=== PATIENT | male | born 1965 | race Caucasian/White ===

== ENCOUNTER 2016-09-15 17:11 | Emergency (ER) | payer SELFPAY ==
[~2016-09-15] VITALS: Ht 180.3 cm; Wt 143.0 kg
[~2016-09-15 17:11] MED LIST: AMOXICILLIN500 MG PO; ANUCORT-HC25 MG RE; ASPIRIN81 MG PO; ATORVASTATI80 MG/TAB PO; AUGMENTIN875TAB PO; BENADRYL 50MG C50 MG PO; BENZONATATE200 MG PO; CELEXA10 MG; CIPRO500 MG OR; CIPROFLOXACN500 MG PO; DARVOCET N-100100 - OR; LISINOPRIL10 MG PO; LORTAB 10-325 M1 TAB PO; LORTAB 5/3255 MG PO; LORTAB 7.5 OR; LORTAB5 OR; MEDDOSEPAK PO; NO; NO MEDS; PHENERGAN25 MG/ML IM; PREVACID30 M1 OR; PROAIR HFA IN; REGLAN10 MG OR; ULTRAM50 M1 PO
[2016-09-15 18:40] LABS: HEMOGLOBIN 15.6 g/dl (14.0-18.0); IMMATURE GRANULOCYTES 0.6 % (0.0-1.0); MEAN CELL VOLUME 90.7 fL CALC (80.0-100.0); MEAN CORPUSCULAR HGB 29.5 pG CALC (26.0-32.0); MEAN CORPUSCULAR HGB CONC 32.5 g/L CALC (32.0-36.0); NEUT# 13.94 thou/uL (1.82-7.42); RED BLOOD COUNT 5.29 mill/uL (4.70-6.10); RED CELL DISTRI WIDTH 13.1 % (11.5-15.5)
[2016-09-15 18:45] LABS: ALBUMIN 4.6 g/dL (3.2-5.0); ALKALINE PHOSPHATASE 100 u/l (38-126); ANION GAP 15 (6-22 (CALC)); BILIRUBIN, TOTAL 0.7 mg/dL (0.0-1.4); BUN 11 mg/dL (9-20); BUN/CREATININE RATIO 14 (12-20 (CALC)); CALCIUM 9.5 mg/dL (8.4-10.2); CARBON DIOXIDE 27 mmol/l (22-30); CHLORIDE 105 mmol/l (95-108); CREATININE 0.8 mg/dL (0.7-1.3); GFR > 60 ML/MIN (>=60 (CALC)); GFR FOR AFR.AMER. > 60 ML/MIN (>=60 (CALC)); GLUCOSE 96 mg/dL (75-110); POTASSIUM 4.1 mmol/l (3.5-5.1); SGOT/AST 46 u/l (17-59); SGPT/ALT 36 u/l (21-72); SODIUM 143 mmol/l (137-146); TOTAL PROTEIN 8.4 g/dL (6.3-8.2)
[2016-09-15 19:00] VITALS: BP 121/60
[2016-09-15] MEDS ORDERED: PEPCID20 MG PO (19:28)
[2016-09-15] MEDS ORDERED: BENADRYL 50MG C50 MG PO (19:28)
[2016-09-15] MEDS ORDERED: MEDDOSEPAK PO (19:28)
== END 2016-09-15 19:25 | disposition left against medical advice (07) | DRG 916 ==
LOC: ED 17:11
PROVIDERS: Emergency Medicine
DX: T78.3XXA Angioneurotic edema, initial encounter (principal); Z91.19 Patient's noncompliance with other medical treatment and regimen

== ENCOUNTER 2017-10-09 06:41 | Emergency (ER) | payer BC ==
[~2017-10-09] VITALS: Ht 180.3 cm; Wt 130.0 kg
[~2017-10-09 06:41] MED LIST changes: +PEPCID20 MG PO
[2017-10-09 07:10] LABS: HEMATOCRIT 45.3 % (39.0-50.0); HEMOGLOBIN 14.8 g/dl (14.0-18.0); IMMATURE GRANULOCYTES 0.6 % (0.0-1.0); MEAN CELL VOLUME 90.6 fL CALC (80.0-100.0); MEAN CORPUSCULAR HGB 29.6 pG CALC (26.0-32.0); MEAN CORPUSCULAR HGB CONC 32.7 g/L CALC (32.0-36.0); NEUT# 6.37 thou/uL (1.82-7.42); RED CELL DISTRI WIDTH 13.6 % (11.5-15.5)
[2017-10-09 07:22] LABS: ALKALINE PHOSPHATASE 98 u/l (38-126); ANION GAP 14 (6-22 (CALC)); BILIRUBIN, TOTAL 0.5 mg/dL (0.0-1.4); BUN 14 mg/dL (9-20); BUN/CREATININE RATIO 18 (12-20 (CALC)); CARBON DIOXIDE 26 mmol/l (22-30); CHLORIDE 108 mmol/l (95-108); CREATININE 0.8 mg/dL (0.7-1.3); GFR > 60 ML/MIN (>=60 (CALC)); GFR FOR AFR.AMER. > 60 ML/MIN (>=60 (CALC)); POTASSIUM 4.1 mmol/l (3.5-5.1); SGOT/AST 17 u/l (17-59); SGPT/ALT 35 u/l (21-72); SODIUM 144 mmol/l (137-146); TOTAL PROTEIN 7.4 g/dL (6.3-8.2)
[2017-10-09] MEDS ORDERED: PREDNISONE50 MG PO (08:56)
[2017-10-09] MEDS ORDERED: EPIPEN 2-P0.3 MG/0.3 IM (08:56)
[2017-10-09 10:25] VITALS: BP 161/79
== END 2017-10-09 10:25 | disposition left against medical advice (07) | DRG 916 ==
LOC: ED 06:41
PROVIDERS: Emergency Medicine
DX: T78.3XXA Angioneurotic edema, initial encounter (principal); I10 Essential (primary) hypertension; F17.210 Nicotine dependence, cigarettes, uncomplicated; Z91.19 Patient's noncompliance with other medical treatment and regimen

== ENCOUNTER 2018-02-03 17:57 | Emergency (ER) | payer BC ==
[~2018-02-03] VITALS: Ht 180.3 cm; Wt 130.0 kg
[~2018-02-03 17:57] MED LIST changes: +ASPIRIN325 MG PO; +EPIPEN 2-P0.3 MG/0.3 IM; +PREDNISONE50 MG PO
[2018-02-03] MEDS ORDERED: SINGULAIR10 MG PO (18:15)
[2018-02-03 18:42] LABS: HEMATOCRIT 44.3 % (39.0-50.0); HEMOGLOBIN 14.6 g/dl (14.0-18.0); IMMATURE GRANULOCYTES 0.5 % (0.0-5.0); MEAN CELL VOLUME 91.2 fL CALC (80.0-100.0); NEUT# 8.79 thou/uL (1.82-7.42); RED BLOOD COUNT 4.86 mill/uL (4.70-6.10)
[2018-02-03 19:14] LABS: ANION GAP 12 (6-22 (CALC)); BUN 16 mg/dL (9-20); BUN/CREATININE RATIO 19 (12-20 (CALC)); CARBON DIOXIDE 25 mmol/l (22-30); CHLORIDE 108 mmol/l (95-108); CREATININE 0.9 mg/dL (0.7-1.3); GFR > 60 ML/MIN (>=60 (CALC)); GFR FOR AFR.AMER. > 60 ML/MIN (>=60 (CALC)); POTASSIUM 4.1 mmol/l (3.5-5.1); SODIUM 141 mmol/l (137-146)
[2018-02-03] MEDS ORDERED: PREDNISONE50 MG PO (19:43)
[2018-02-03] MEDS ORDERED: EPIPEN 2-P0.3 MG/0.3 IM (19:45)
[2018-02-03 21:06] VITALS: BP 160/87
== END 2018-02-03 21:08 | disposition left against medical advice (07) | DRG 916 ==
LOC: ED 17:57 → ED-I 18:20 → ED 21:08
PROVIDERS: Family Medicine
DX: T78.3XXA Angioneurotic edema, initial encounter (principal); Z91.19 Patient's noncompliance with other medical treatment and regimen; F17.200 Nicotine dependence, unspecified, uncomplicated

== ENCOUNTER 2018-04-21 20:13 | Emergency (ER) | payer SELFPAY ==
[~2018-04-21] VITALS: Ht 180.3 cm; Wt 142.6 kg
[~2018-04-21 20:13] MED LIST changes: +SINGULAIR10 MG PO
[2018-04-21 20:59] LABS: HEMATOCRIT 45.2 % (39.0-50.0); IMMATURE GRANULOCYTES 0.4 % (0.0-5.0); MEAN CELL VOLUME 89.9 fL CALC (80.0-100.0); MEAN CORPUSCULAR HGB 29.8 pG CALC (26.0-32.0); MEAN CORPUSCULAR HGB CONC 33.2 g/L CALC (32.0-36.0); NEUT# 8.08 thou/uL (1.82-7.42); RED BLOOD COUNT 5.03 mill/uL (4.70-6.10); RED CELL DISTRI WIDTH 13.2 % (11.5-15.5); URINE BILIRUBIN - DIPSTICK NEGATIVE (NEGATIVE); URINE BLOOD DIPSTICK SMALL (NEGATIVE); URINE COLOR YELLOW; URINE GLUCOSE - DIPSTICK NEGATIVE (NEGATIVE); URINE KETONE NEGATIVE (NEGATIVE); URINE LEUK ESTERASE NEGATIVE (NEGATIVE); URINE NITRITE - DIPSTICK NEGATIVE (Negative); URINE PH 5.5 (4.5-8.0); URINE PROTEIN - DIPSTICK NEGATIVE (NEG-TRACE); URINE UROBILINOGEN - DIPSTICK 0.2 E.U./dL (0.2)
[2018-04-21 21:08] LABS: URINE SQUAMOUS EPITHELIAL CELL FEW EPI/hpf (0-FEW)
[2018-04-21 21:13] LABS: ALBUMIN 4.3 g/dL (3.2-5.0); ALKALINE PHOSPHATASE 96 u/l (38-126); ANION GAP 15 (6-22 (CALC)); BILIRUBIN, TOTAL 0.6 mg/dL (0.0-1.4); BUN 9 mg/dL (9-20); BUN/CREATININE RATIO 10 (12-20 (CALC)); CARBON DIOXIDE 25 mmol/l (22-30); CHLORIDE 105 mmol/l (95-108); CREATININE 0.9 mg/dL (0.7-1.3); GFR > 60 ML/MIN (>=60 (CALC)); GFR FOR AFR.AMER. > 60 ML/MIN (>=60 (CALC)); POTASSIUM 4.4 mmol/l (3.5-5.1); SGOT/AST 23 u/l (17-59); SODIUM 141 mmol/l (137-146); TOTAL PROTEIN 7.7 g/dL (6.3-8.2)
[2018-04-21] MEDS ORDERED: BACTRIM DS1 TAB PO (23:15)
[2018-04-21] MEDS ORDERED: TRAMADOL HCL50 MG PO (23:15)
[2018-04-21] MEDS ORDERED: TAMSULOSIN0.4 MG PO (23:15)
[2018-04-22 00:06] VITALS: BP 134/60
== END 2018-04-22 00:06 | disposition home or self-care (01) | DRG 696 ==
LOC: ED 20:13
PROVIDERS: Family Medicine
DX: R31.9 Hematuria, unspecified (principal); D72.829 Elevated white blood cell count, unspecified; I10 Essential (primary) hypertension; F17.200 Nicotine dependence, unspecified, uncomplicated

== ENCOUNTER 2018-05-16 10:14 | Emergency (ER) | payer SELFPAY ==
[~2018-05-16] VITALS: Ht 180.3 cm; Wt 1212.0 kg
[~2018-05-16 10:14] MED LIST changes: +BACTRIM DS1 TAB PO; +TAMSULOSIN0.4 MG PO; +TRAMADOL HCL50 MG PO
[2018-05-16 13:11] VITALS: BP 173/88
== END 2018-05-16 13:31 | disposition home or self-care (01) | DRG 916 ==
LOC: ED 10:14
DX: T78.3XXA Angioneurotic edema, initial encounter (principal); I10 Essential (primary) hypertension; F17.200 Nicotine dependence, unspecified, uncomplicated; Z86.73 Personal history of transient ischemic attack (TIA), and cerebral infarction without residual deficits

== ENCOUNTER 2018-07-21 23:46 | Observation (INO) | payer BC ==
[~2018-07-21] VITALS: Ht 180.3 cm; Wt 135.0 kg
[2018-07-22 01:16] LABS: HEMATOCRIT 44.1 % (39.0-50.0); HEMOGLOBIN 14.4 g/dl (14.0-18.0); IMMATURE GRANULOCYTES 0.4 % (0.0-5.0); MEAN CELL VOLUME 90.2 fL CALC (80.0-100.0); MEAN CORPUSCULAR HGB 29.4 pG CALC (26.0-32.0); MEAN CORPUSCULAR HGB CONC 32.7 g/L CALC (32.0-36.0); NEUT# 9.11 thou/uL (1.82-7.42); RED BLOOD COUNT 4.89 mill/uL (4.70-6.10); RED CELL DISTRI WIDTH 13.3 % (11.5-15.5)
[2018-07-22 01:31] LABS: ALBUMIN 3.7 g/dL (3.2-5.0); ALKALINE PHOSPHATASE 99 u/l (38-126); AMYLASE 61 u/l (30-110); ANION GAP 11 (6-22 (CALC)); BILIRUBIN, TOTAL 0.2 mg/dL (0.0-1.4); BUN 13 mg/dL (9-20); BUN/CREATININE RATIO 15 (12-20 (CALC)); CARBON DIOXIDE 27 mmol/l (22-30); CHLORIDE 106 mmol/l (95-108); CREATININE 0.9 mg/dL (0.7-1.3); GFR > 60 ML/MIN (>=60 (CALC)); GFR FOR AFR.AMER. > 60 ML/MIN (>=60 (CALC)); LIPASE 60 u/l (23-300); POTASSIUM 3.9 mmol/l (3.5-5.1); SGOT/AST 13 u/l (17-59); SODIUM 141 mmol/l (137-146); TOTAL PROTEIN 6.6 g/dL (6.3-8.2)
[2018-07-22 01:43] LABS: MYOGLOBIN 22 ng/mL (0 - 121)
[2018-07-22 02:57] LABS: URINE BILIRUBIN - DIPSTICK NEGATIVE (NEGATIVE); URINE BLOOD DIPSTICK SMALL (NEGATIVE); URINE COLOR YELLOW; URINE GLUCOSE - DIPSTICK NEGATIVE (NEGATIVE); URINE KETONE NEGATIVE (NEGATIVE); URINE LEUK ESTERASE NEGATIVE (NEGATIVE); URINE NITRITE - DIPSTICK NEGATIVE (Negative); URINE PROTEIN - DIPSTICK NEGATIVE (NEG-TRACE); URINE SPECIFIC GRAVITY >=1.030; URINE UROBILINOGEN - DIPSTICK 0.2 E.U./dL (0.2)
[2018-07-22 03:09] LABS: URINE BACTERIA RARE hpf; URINE RBC 0-2 RBC/hpf (0-5); URINE WBC 0-2 WBC/hpf (0-5)
[2018-07-22 05:17] VITALS: BP 105/49
[2018-07-22 07:45] VITALS: BP 132/70
[2018-07-22 11:00] VITALS: BP 137/66
[2018-07-22] MEDS ORDERED: PROTONIX40 M2 PO (15:50)
== END 2018-07-22 16:17 | disposition home or self-care (01) | DRG 313 ==
LOC: ED 23:46 → ED-I 23:59 → ED 23:59 → ED-I 07-22 02:29 → ED 07-22 03:02 → MS2 07-22 03:03
PROVIDERS: Emergency Medicine; ADMIT Internal Medicine; ATTEND Internal Medicine
DX: R07.89 Other chest pain (principal); K21.9 Gastro-esophageal reflux disease without esophagitis; I10 Essential (primary) hypertension; F17.200 Nicotine dependence, unspecified, uncomplicated; M19.90 Unspecified osteoarthritis, unspecified site; E66.9 Obesity, unspecified; Z68.41 Body mass index [BMI] 40.0-44.9, adult; Z86.73 Personal history of transient ischemic attack (TIA), and cerebral infarction without residual deficits; Z72.89 Other problems related to lifestyle
CPT/HCPCS: G0378

== ENCOUNTER 2018-09-08 05:23 | Emergency (ER) | payer SELFPAY ==
[~2018-09-08] VITALS: Ht 180.3 cm; Wt 128.2 kg
[~2018-09-08 05:23] MED LIST changes: +PROTONIX40 M2 PO
[2018-09-08 06:02] LABS: HEMATOCRIT 49.7 % (39.0-50.0); IMMATURE GRANULOCYTES 0.8 % (0.0-5.0); MEAN CELL VOLUME 91.2 fL CALC (80.0-100.0); MEAN CORPUSCULAR HGB 29.4 pG CALC (26.0-32.0); MEAN CORPUSCULAR HGB CONC 32.2 g/L CALC (32.0-36.0); NEUT# 6.1 thou/uL (1.82-7.42); RED BLOOD COUNT 5.45 mill/uL (4.70-6.10); RED CELL DISTRI WIDTH 13.4 % (11.5-15.5)
[2018-09-08] MEDS ORDERED: ZYRTEC10 MG PO (06:53)
[2018-09-08] MEDS ORDERED: SINGULAIR10 MG PO (06:53)
[2018-09-08 06:55] LABS: ALBUMIN 4.3 g/dL (3.2-5.0); ALKALINE PHOSPHATASE 119 u/l (38-126); ANION GAP 14 (6-22 (CALC)); BUN 13 mg/dL (9-20); BUN/CREATININE RATIO 16 (12-20 (CALC)); CARBON DIOXIDE 23 mmol/l (22-30); CHLORIDE 109 mmol/l (95-108); CREATININE 0.8 mg/dL (0.7-1.3); GFR > 60 ML/MIN (>=60 (CALC)); GFR FOR AFR.AMER. > 60 ML/MIN (>=60 (CALC)); POTASSIUM 4.4 mmol/l (3.5-5.1); SGOT/AST 22 u/l (17-59); SODIUM 141 mmol/l (137-146); TOTAL PROTEIN 7.7 g/dL (6.3-8.2)
[2018-09-08 06:56] LABS: BILIRUBIN, TOTAL 0.6 mg/dL (0.0-1.4)
[2018-09-08 08:45] VITALS: BP 135/65
== END 2018-09-08 08:45 | disposition home or self-care (01) | DRG 916 ==
LOC: ED 05:23
PROVIDERS: Family Medicine
DX: T78.3XXA Angioneurotic edema, initial encounter (principal)

== ENCOUNTER 2019-03-09 05:53 | Emergency (ER) | payer SELFPAY ==
[~2019-03-09] VITALS: Ht 180.3 cm; Wt 122.7 kg
[~2019-03-09 05:53] MED LIST changes: +ZYRTEC10 MG PO
[2019-03-09] MEDS ORDERED: MELOXICAM7.5 MG PO (06:06)
[2019-03-09] MEDS ORDERED: STERAPRED DS10 MG PO (07:07)
[2019-03-09] MEDS ORDERED: PEPCID40 MG PO (07:07)
[2019-03-09 07:29] VITALS: BP 141/78
== END 2019-03-09 07:29 | disposition home or self-care (01) | DRG 916 ==
LOC: ED 05:53
DX: T78.3XXA Angioneurotic edema, initial encounter (principal); I10 Essential (primary) hypertension; F17.210 Nicotine dependence, cigarettes, uncomplicated

== ENCOUNTER 2020-08-08 21:33 | Emergency (ER) | payer SELFPAY ==
[~2020-08-08 21:33] MED LIST changes: +MELOXICAM7.5 MG PO; +PEPCID40 MG PO; +STERAPRED DS10 MG PO
[2020-08-08 22:06] LABS: HEMATOCRIT 46.4 % (39.0-50.0); HEMOGLOBIN 15.1 g/dl (14.0-18.0); IMMATURE GRANULOCYTES 0.4 % (0.0-5.0); MEAN CELL VOLUME 89.9 fL CALC (80.0-100.0); MEAN CORPUSCULAR HGB 29.3 pG CALC (26.0-32.0); MEAN CORPUSCULAR HGB CONC 32.5 g/dL CAL (32.0-36.0); NEUT# 7.88 thou/uL (1.82-7.42); RED BLOOD COUNT 5.16 mill/uL (4.70-6.10); RED CELL DISTRI WIDTH 13.2 % (11.5-15.5)
[2020-08-08 22:20] LABS: ALBUMIN 4.3 g/dL (3.2-5.0); ALKALINE PHOSPHATASE 88 u/l (38-126); AMYLASE 77 u/l (30-110); ANION GAP 11 (6-22 (CALC)); BILIRUBIN, TOTAL 0.5 mg/dL (0.0-1.4); BUN 15 mg/dL (9-20); BUN/CREATININE RATIO 17 (12-20 (CALC)); CARBON DIOXIDE 27 mmol/l (22-30); CHLORIDE 105 mmol/l (95-108); CREATININE 0.9 mg/dL (0.7-1.3); GFR > 60 ML/MIN (>=60 (CALC)); GFR FOR AFR.AMER. > 60 ML/MIN (>=60 (CALC)); LIPASE 38 u/l (23-300); POTASSIUM 3.8 mmol/l (3.5-5.1); SGOT/AST 20 u/l (17-59); SODIUM 140 mmol/l (137-146); TOTAL PROTEIN 8.1 g/dL (6.3-8.2)
[2020-08-08 22:29] LABS: MYOGLOBIN 32 ng/mL (0 - 121)
[2020-08-08 22:37] LABS: ACT PARTIAL THROMBO TIME 24.5 SECONDS (20.0-32.5); PROTHROMBIN TIME 10.2 SECONDS (9.0-12.5)
[2020-08-08 22:43] LABS: D-DIMER 0.76 mg/L (0.19-0.60)
[2020-08-09] MEDS ORDERED: PROTONIX40 M2 PO (00:13)
[2020-08-09 00:17] VITALS: BP 136/75
== END 2020-08-09 00:25 | disposition home or self-care (01) | DRG 392 ==
LOC: ED 21:33
PROVIDERS: Family Medicine
DX: K21.9 Gastro-esophageal reflux disease without esophagitis (principal); K29.70 Gastritis, unspecified, without bleeding; I10 Essential (primary) hypertension; F17.210 Nicotine dependence, cigarettes, uncomplicated; Z86.73 Personal history of transient ischemic attack (TIA), and cerebral infarction without residual deficits; Z20.822 Contact with and (suspected) exposure to COVID-19
CPT/HCPCS: Q9967

== ENCOUNTER 2020-10-16 22:20 | Emergency (ER) | payer SELFPAY ==
[~2020-10-16] VITALS: Ht 180.3 cm; Wt 132.0 kg
[2020-10-17] MEDS ORDERED: VOLTAREN75 MG PO (00:08)
[2020-10-17 00:15] VITALS: BP 164/90
== END 2020-10-17 00:20 | disposition home or self-care (01) | DRG 563 ==
LOC: ED 22:20
DX: S29.012A Strain of muscle and tendon of back wall of thorax, initial encounter (principal); I10 Essential (primary) hypertension; F17.200 Nicotine dependence, unspecified, uncomplicated; X58.XXXA Exposure to other specified factors, initial encounter; Z86.73 Personal history of transient ischemic attack (TIA), and cerebral infarction without residual deficits

== ENCOUNTER 2020-11-28 22:14 | Emergency (ER) | payer SELFPAY ==
[~2020-11-28 22:14] MED LIST changes: +VOLTAREN75 MG PO
[2020-11-29] MEDS ORDERED: STERAPRED DS10 MG PO (04:20)
== END 2020-11-29 01:21 | disposition left against medical advice (07) | DRG 951 ==
LOC: ED 22:14 → LWOBS 11-29 00:58
DX: Z53.21 Procedure and treatment not carried out due to patient leaving prior to being seen by health care provider (principal)

== ENCOUNTER 2020-11-29 02:50 | Emergency (ER) | payer SELFPAY ==
[~2020-11-29] VITALS: Ht 180.3 cm; Wt 120.0 kg
[2020-11-29] MEDS ORDERED: STERAPRED DS10 MG PO (04:20)
[2020-11-29 04:28] VITALS: BP 155/73
== END 2020-11-29 04:40 | disposition home or self-care (01) | DRG 916 ==
LOC: ED 02:50
DX: T78.3XXA Angioneurotic edema, initial encounter (principal); I10 Essential (primary) hypertension; F17.200 Nicotine dependence, unspecified, uncomplicated; Z86.73 Personal history of transient ischemic attack (TIA), and cerebral infarction without residual deficits

== ENCOUNTER 2022-11-13 14:26 | Emergency (ER) | payer SELFPAY ==
[2022-11-13] VITALS (15 sets, daily range): BP systolic 109–129; BP diastolic 47–72
[~2022-11-13] VITALS: Ht 180.3 cm; Wt 145.6 kg
[2022-11-13] MEDS ORDERED: COZAAR25 MG PO (15:21)
[2022-11-13] MEDS ORDERED: PAROXETINE10 MG PO (15:22)
[2022-11-13] MEDS ORDERED: ATORVASTATIN CA20 MG PO (15:22)
[2022-11-13 15:43] LABS: BASO% 0.4 % (0-3); IMMATURE GRANULOCYTES 1.2 % (0.0-5.0); LYMPH% 32.8 % (15-41); MEAN CELL VOLUME 93.5 fL CALC (80.0-100.0); MEAN CORPUSCULAR HGB 30.3 pG CALC (26.0-32.0); MEAN CORPUSCULAR HGB CONC 32.4 g/dL CAL (32.0-36.0); MONO% 11.1 % (2-13); NEUT# 5.81 thou/uL (1.82-7.42); NEUT% 51.5 % (42-76); RED BLOOD COUNT 3.1 mill/uL (4.70-6.10); RED CELL DISTRI WIDTH 13.6 % (11.5-15.5)
[2022-11-13 15:45] LABS: HEMOGLOBIN 9.4 g/dl (14.0-18.0)
[2022-11-13 15:56] LABS: ALBUMIN 3.9 g/dL (3.2-5.0); ALKALINE PHOSPHATASE 82 u/l (38-126); ANION GAP 11 (6-22 (CALC)); BILIRUBIN, TOTAL 0.4 mg/dL (0.2-1.3); BUN 16 mg/dL (9-20); BUN/CREATININE RATIO 17 (12-20 (CALC)); CARBON DIOXIDE 27 mmol/l (22-30); CHLORIDE 106 mmol/l (95-108); CREATININE 0.9 mg/dL (0.7-1.3); GFR FOR AFR.AMER. > 60 ML/MIN (>=60 (CALC)); GFR OTHER RACES > 60 ML/MIN (>=60 (CALC)); POTASSIUM 3.7 mmol/l (3.5-5.1); SGOT/AST 30 u/l (17-59); SODIUM 140 mmol/l (137-146); TOTAL PROTEIN 6.9 g/dL (6.3-8.2)
[2022-11-13 16:06] LABS: PROTHROMBIN TIME 9.5 SECONDS (9.0-12.5)
[2022-11-13] MEDS ORDERED: PROTONIX40 M2 PO (17:53)
[2022-11-13] MEDS ORDERED: FERROUS SULF324 M1 PO (17:55)
== END 2022-11-13 18:14 | disposition home or self-care (01) | DRG 379 ==
LOC: ED 14:26
PROVIDERS: Nurse Practitioner
DX: K92.2 Gastrointestinal hemorrhage, unspecified (principal); K21.9 Gastro-esophageal reflux disease without esophagitis; R94.31 Abnormal electrocardiogram [ECG] [EKG]
CPT/HCPCS: Q9967; S0164

== ENCOUNTER 2023-04-14 15:22 | Emergency (ER) | payer SELFPAY ==
[~2023-04-14 15:22] MED LIST changes: +ALL DAY10 MG PO; +ATORVASTATIN CA20 MG PO; +COZAAR25 MG PO; +FERROUS SULF324 M1 PO; +PAROXETINE10 MG PO
== END 2023-04-14 17:38 | disposition left against medical advice (07) | DRG 951 ==
LOC: ED 15:22 → LWOBS 16:38 → ED 16:38 → LWOBS 17:38
DX: Z53.21 Procedure and treatment not carried out due to patient leaving prior to being seen by health care provider (principal)

== ENCOUNTER 2024-06-08 21:45 | Observation (INO) | payer OTHER ==
[~2024-06-08] VITALS: Ht 180.3 cm; Wt 137.6 kg
[~2024-06-08 21:45] MED LIST changes: +NAPROXEN500 MG PO; +PERCOCET 10/31 COMBO PO; +ZOLOFT25 MG PO
[2024-06-08 21:55] VITALS: BP 148/87
[2024-06-08] MEDS ORDERED: EPINEPHrine HCL 1 MG/ML AMP ONE (21:56)
[2024-06-08] MEDS ORDERED: EPINEPHrine HCL 1 MG/ML AMP IM ONE ×2 (22:00→22:45)
[2024-06-08] MEDS ORDERED: DiphenhydrAMINE HCL 50 MG/ML SDV IV ONE ×2 (22:00→23:55)
[2024-06-08 22:31] VITALS: BP 160/89
[2024-06-08 23:01] VITALS: BP 162/92
[2024-06-08 23:16] VITALS: BP 128/91
[2024-06-08 23:46] VITALS: BP 134/74
[2024-06-08 23:49] LABS: BASO% 0.2 % (0-3); EOS% 0.8 % (0-8); HEMATOCRIT 34.5 % (39.0-50.0); IMMATURE GRANULOCYTES 0.4 % (0.0-5.0); LYMPH% 14.8 % (15-41); MEAN CELL VOLUME 91.5 fL CALC (80.0-100.0); MEAN CORPUSCULAR HGB 29.2 pG CALC (26.0-32.0); MEAN CORPUSCULAR HGB CONC 31.9 g/dL CAL (32.0-36.0); NEUT# 23.1 thou/uL (1.82-7.42); NEUT% 79.8 % (42-76); RED BLOOD COUNT 3.77 mill/uL (4.70-6.10); RED CELL DISTRI WIDTH 13.5 % (11.5-15.5)
[2024-06-08] MEDS ORDERED: PROTONIX40 M2 PO (23:50)
[2024-06-08] MEDS ORDERED: EPINEPHrine HCL 1 MG/ML AMP IV ONE (23:55)
[2024-06-09] VITALS (23 sets, daily range): BP systolic 90–147; BP diastolic 64–92
[2024-06-09 00:11] LABS: ALBUMIN 3.8 g/dL (3.2-5.0); BILIRUBIN, TOTAL 0.4 mg/dL (0.2-1.3); CREATININE 0.9 mg/dL (0.7-1.3); POTASSIUM 3.5 mmol/l (3.5-5.1)
[2024-06-09] MEDS ORDERED: EPINEPHrine HCL 1 MG/ML AMP IN ONE (00:25)
[2024-06-09] MEDS ORDERED: EPINEPHrine HCL 1 MG/ML AMP IM ONE (00:35)
[2024-06-09] MEDS ORDERED: AMPICILLIN & SULBACTAM SODIUM 1.5 GM in SODIUM CHLORIDE 0.9% 50 ML IV ONE (01:20)
[2024-06-09] MEDS ORDERED: SODIUM CHLORIDE 0.9% 1,000 ML IV ONE ×2 (01:30→02:25)
[2024-06-09] MEDS ORDERED: SODIUM CHLORIDE 0.9% 1,000 ML IV PRN (02:40)
[2024-06-09] MEDS ORDERED: MAGNESIUM HYDROXIDE 30 ML UDC PO PRN (02:40)
[2024-06-09] MEDS ORDERED: ACETAMINOPHEN 325 MG/TAB PO PRN (02:40)
[2024-06-09] MEDS ORDERED: AMPICILLIN & SULBACTAM SODIUM 3 GM in SODIUM CHLORIDE 0.9% 100 ML IV SCH (06:00)
[2024-06-09] MEDS ORDERED: AMPICILLIN & SULBACTAM SODIUM 1.5 GM in SODIUM CHLORIDE 0.9% 50 ML IV SCH (06:00)
[2024-06-09] MEDS ORDERED: TRANEXAMIC ACID 100 MG/ML 10ML IV ONE (06:45)
[2024-06-09] MEDS ORDERED: PANTOPRAZOLE SODIUM Sesquihydr 40 MG/TAB PO SCH (09:00)
[2024-06-09 09:05] LABS: ALBUMIN 3.7 g/dL (3.2-5.0); BILIRUBIN, TOTAL 0.5 mg/dL (0.2-1.3); CREATININE 0.6 mg/dL (0.7-1.3); TOTAL PROTEIN 6.6 g/dL (6.3-8.2)
[2024-06-09 09:07] LABS: BASO% 0.1 % (0-3); HEMATOCRIT 31.4 % (39.0-50.0); HEMOGLOBIN 10.2 g/dl (14.0-18.0); IMMATURE GRANULOCYTES 0.4 % (0.0-5.0); LYMPH% 7.5 % (15-41); MEAN CELL VOLUME 91.3 fL CALC (80.0-100.0); MEAN CORPUSCULAR HGB 29.7 pG CALC (26.0-32.0); MEAN CORPUSCULAR HGB CONC 32.5 g/dL CAL (32.0-36.0); MONO% 1.4 % (2-13); NEUT# 17.53 thou/uL (1.82-7.42); NEUT% 90.6 % (42-76); RED BLOOD COUNT 3.44 mill/uL (4.70-6.10); RED CELL DISTRI WIDTH 13.5 % (11.5-15.5)
[2024-06-09 09:12] LABS: POTASSIUM 4.5 mmol/l (3.5-5.1)
[2024-06-09] MEDS ORDERED: PARoxetine 10 MG/TAB PO SCH (10:00)
[2024-06-10] VITALS (10 sets, daily range): BP systolic 121–156; BP diastolic 55–81
[2024-06-10 05:56] LABS: MEAN CELL VOLUME 93.6 fL CALC (80.0-100.0); MEAN CORPUSCULAR HGB 30.1 pG CALC (26.0-32.0); MEAN CORPUSCULAR HGB CONC 32.1 g/dL CAL (32.0-36.0); RED BLOOD COUNT 2.99 mill/uL (4.70-6.10); RED CELL DISTRI WIDTH 13.7 % (11.5-15.5)
[2024-06-10 06:14] LABS: ALBUMIN 3.4 g/dL (3.2-5.0); CREATININE 0.8 mg/dL (0.7-1.3); MAGNESIUM 2.1 mg/dL (1.6-2.3); POTASSIUM 4.3 mmol/l (3.5-5.1); TOTAL PROTEIN 6.1 g/dL (6.3-8.2)
[2024-06-10 06:19] LABS: BILIRUBIN, TOTAL 0.2 mg/dL (0.2-1.3)
[2024-06-10] MEDS ORDERED: Pantoprazole Sodium 40 MG VIAL (Protonix) IV SCH ×2 (10:00→21:00)
[2024-06-10] MEDS ORDERED: FAMOTIDINE 20 MG/TAB PO SCH (10:00)
[2024-06-10] MEDS ORDERED: DiphenhydrAMINE HCL 25 MG CPLT PO SCH (10:00)
[2024-06-11 02:34] VITALS: BP 113/68
[2024-06-11 04:20] VITALS: BP 113/68
[2024-06-11 05:31] VITALS: BP 142/84
[2024-06-11 05:43] LABS: HEMATOCRIT 29.5 % (39.0-50.0); HEMOGLOBIN 9.4 g/dl (14.0-18.0); IMMATURE GRANULOCYTES 1.7 % (0.0-5.0); LYMPH% 13.2 % (15-41); MEAN CELL VOLUME 93.7 fL CALC (80.0-100.0); MEAN CORPUSCULAR HGB 29.8 pG CALC (26.0-32.0); MEAN CORPUSCULAR HGB CONC 31.9 g/dL CAL (32.0-36.0); MONO% 7.2 % (2-13); NEUT# 18.67 thou/uL (1.82-7.42); NEUT% 77.9 % (42-76); RED BLOOD COUNT 3.15 mill/uL (4.70-6.10); RED CELL DISTRI WIDTH 13.9 % (11.5-15.5)
[2024-06-11 05:59] LABS: ALBUMIN 3.3 g/dL (3.2-5.0); BILIRUBIN, TOTAL 0.2 mg/dL (0.2-1.3); CREATININE 0.7 mg/dL (0.7-1.3); MAGNESIUM 2.2 mg/dL (1.6-2.3)
[2024-06-11 07:24] LABS: URINE BILIRUBIN - DIPSTICK Negative (NEGATIVE); URINE BLOOD DIPSTICK Trace-intact (NEGATIVE); URINE COLOR Yellow; URINE GLUCOSE - DIPSTICK Negative (NEGATIVE); URINE KETONE Negative (NEGATIVE); URINE LEUK ESTERASE Negative (NEGATIVE); URINE NITRITE - DIPSTICK Negative (Negative); URINE PH 5.5 (4.5-8.0); URINE PROTEIN - DIPSTICK Negative (NEG-TRACE); URINE SPECIFIC GRAVITY >=1.030; URINE UROBILINOGEN - DIPSTICK 0.2 E.U./dL (0.2)
[2024-06-11] MEDS ORDERED: PEPCID20 MG PO (09:31)
[2024-06-11] MEDS ORDERED: DIPHENHYDRAMINE25 MG PO (09:32)
[2024-06-11] MEDS ORDERED: PREDNISONE10 MG PO (09:34)
== END 2024-06-11 11:02 | disposition home or self-care (01) | DRG 916 ==
LOC: ED 21:45 → ED-I 23:40 → ED 06-09 02:37 → ED-I 06-09 02:38 → MS2 06-09 19:40
PROVIDERS: Family Medicine; Internal Medicine; Nurse Practitioner Family; ADMIT Internal Medicine; ATTEND Internal Medicine
DX: T78.3XXA Angioneurotic edema, initial encounter (principal); E87.20 Acidosis, unspecified; K52.9 Noninfective gastroenteritis and colitis, unspecified; I10 Essential (primary) hypertension; K21.9 Gastro-esophageal reflux disease without esophagitis; J45.909 Unspecified asthma, uncomplicated; F32.A Depression, unspecified; Z86.73 Personal history of transient ischemic attack (TIA), and cerebral infarction without residual deficits; Z91.030 Bee allergy status
CPT/HCPCS: G0378; J0295; J0744; J1100; J1200; J1836; J2470